=== PATIENT | male | born 1960 | race Caucasian/White ===

== ENCOUNTER 2021-11-14 14:14 | Emergency (ER) | payer OTHER ==
[~2021-11-14] VITALS: Ht 172.7 cm; Wt 65.8 kg
[2021-11-14 14:16] VITALS: BP 145/92
--- NOTE | 2021-11-14 14:20 | NUR ---
pt requesting to leave at this time.
--- NOTE | 2021-11-14 14:21 | NUR ---
PATIENT LEFT WITHOUT BEING SEEN BY DR. LIU. NO FURTHER CARE PROVIDED FOR PATIENT.
== END 2021-11-14 14:21 | disposition left against medical advice (07) ==
LOC: MED 14:14
DX: M25.561 Pain in right knee (principal); M25.521 Pain in right elbow; Z53.21 Procedure and treatment not carried out due to patient leaving prior to being seen by health care provider